=== PATIENT | male | born 1960 | race Caucasian/White ===

== ENCOUNTER 2025-11-05 20:48 | Emergency (ER) | payer MEDICARE, MEDICAID ==
[~2025-11-05] VITALS: Ht 188 cm; Wt 90.0 kg
[2025-11-05 21:08] VITALS: O2SAT 98
[2025-11-05] MEDS ORDERED: MORPHINE SULFATE 4 MG/ML INJ (FOR IV/IM USE) IV ONE (21:30)
[2025-11-05 23:30] LABS: BASOPHILS % 0.7 % (0.0-2.0); EOSINOPHILS % 0.4 % (0.0-5.0); HEMATOCRIT. 31.8 % (42.0-52.0); HEMOGLOBIN. 10.2 g/dL (14.0-18.0); LYMPHOCYTES % 11.2 % (20.0-50.0); MEAN PLATELET VOLUME 9.4 fl (7.4-10.4); MONOCYTES % 9.3 % (2.0-8.0); NEUTROPHILS % 78.4 % (40.0-76.0); PLATELET 265 x1000/uL (130-400); RED BLOOD CELL COUNT 3.95 mill/uL (4.7-6.1); RED CELL DISTRIBUTION WIDTH 16.3 % (11.6-14.6)
[2025-11-05] MEDS: ACETAMINOPHEN 500MG TABLET PO NR (23:30)
[2025-11-05] MEDS: ONDANSETRON HCL 4MG/2ML INJ IV NR (23:30)
[2025-11-05] MEDS: ACETAMINOPHEN 500MG TABLET PO ONE (23:36)
[2025-11-05] MEDS: ONDANSETRON HCL 4MG/2ML INJ IV ONE (23:37)
[2025-11-05] MEDS: MORPHINE SULFATE 4 MG/ML INJ (FOR IV/IM USE) IV NR (23:42)
[2025-11-05 23:44] LABS: CREATININE 1.0 mg/dL (0.6-1.3); UREA NITROGEN BLOOD 18 mg/dL (9-23)
[2025-11-05 23:45] LABS: PROTEIN TOTAL 6.5 g/dL (6.0-8.3)
[2025-11-05 23:46] LABS: ASPARTATE AMINOTRANSFERASE 19 IU/L (<34); BILIRUBIN DIRECT 0.4 mg/dL (<=3.0); BILIRUBIN TOTAL 1.3 mg/dL (0.1-1.0)
[2025-11-06 00:37] LABS: CLARITY URINE CLEAR (CLEAR); COLOR URINE YELLOW (YELLOW); GLUCOSE URINE NEGATIVE (NEGATIVE); KETONES URINE TRACE (NEGATIVE); LEUKOCYTE ESTERASE URINE NEGATIVE (NEGATIVE); NITRITE URINE NEGATIVE (NEGATIVE); OCCULT BLOOD URINE NEGATIVE (NEGATIVE); PH URINE 8.0 (4.5-8.0); PROTEIN URINE NEGATIVE (NEGATIVE); SPECIFIC GRAVITY URINE 1.007 (1.005-1.030); UROBILINOGEN URINE 0.2 E.U./dL (0.2-1.0)
[2025-11-06] MEDS: OXYCODONE HCL 10MG TABLET SR 12HR PO ONE (00:45)
[2025-11-06 01:54] VITALS: BP 111/64; PULSE 67; RESP 15; TEMP 36.9; O2SAT 98
[2025-11-06] MEDS ORDERED: MORPHINE SULFATE 4 MG/ML INJ (FOR IV/IM USE) IV ONE (04:00)
== END 2025-11-06 05:24 | disposition left against medical advice (07) ==
LOC: ER 20:48 → EDBEDREQTM 11-06 04:24 → EDBEDREQ 11-06 04:24 → CMPBEDREQ 11-06 05:24 → ER 11-06 05:24
DX: K40.30 Unilateral inguinal hernia, with obstruction, without gangrene, not specified as recurrent (principal); I12.0 Hypertensive chronic kidney disease with stage 5 chronic kidney disease or end stage renal disease; N18.6 End stage renal disease; Z86.73 Personal history of transient ischemic attack (TIA), and cerebral infarction without residual deficits; Z99.2 Dependence on renal dialysis
CPT/HCPCS: 99285; 74176; 96374; 96375; 80076; 80048; 83690; 85025; 36415; 81003; 93005; J2405; J2270